=== PATIENT | male | born 1995 | race Caucasian/White ===

== ENCOUNTER 2019-08-12 22:15 | Emergency (ER) | payer SELFPAY ==
[~2019-08-12] VITALS: Ht 180.3 cm; Wt 84.4 kg
--- NOTE | 2019-08-12 22:53 | NUR ---
REPORT TO KAY SAXENA
--- NOTE | 2019-08-12 23:04 | Diagnostic Imaging Report ---
Hand Complete CPT code: 82577 Indication:Fall Technique: Three views of the left hand obtained Comparison: None. Findings: The area of pain was not indicated or marked. Distal radius and ulna appear intact. Carpal bones appear generally well aligned. Fracture of the neck of the fifth metacarpal with mild volar angulation of the distal fracture fragment. No intra-articular extension. There is diffuse surrounding soft tissue swelling. The remainder of the digits are intact. IMPRESSION: Fifth metacarpal fracture as described above. Signed by: Dr. Rupert Sifuentes MD on 08/12/2019 11:01 PM
--- NOTE | 2019-08-12 23:32 | Emergency Department Note ---
History of Present Illnes History of Present Illness Chief Complaint: Extremity Trauma/Pain History of Present Illness This is a 24 year old male, with no significant PMH, who presents for evaluation of left hand pain. Pt states that he was getting out of a van, @ 1 hour [employer]ING [employer], when his foot slipped on the running board, and he fell onto the left hand, that initially hit the running board, and then the concrete. Pt has pain on movement of left 5th finger. Pain is worse with extension. He denies numbness or tingling of the left hand. He is right handed. He denies previous injury to the left hand/wrist. Historian: Patient Arrival Mode: Car Business [employer] Assistant Required: No Onset (how long ago): hour(s) (1) Location: see HPI Quality: see HPI Radiation: non-radiation Severity: moderate Onset quality: sudden Duration (how long): hour(s) (1) Timing of current episode: constant Progression: unchanged Chronicity: new Relieving factors: none Exacerbating factors: movement Treatments prior to arrival: other (Tylenol) Risk factors: None Past Medical/Family History Physician Review I have reviewed the patient's past medical and family history. Any updates have been documented here. Past Medical History Recent Fever: No Clinical Suspicion of Infectio: No New/Unexplained Change in Ment: No Past Medical History: None Past Surgical History: None Social History Smoking Cessation: Never Smoker Counseling Performed: No Alcohol Use: None Any Illegal Drug Use: No TB Exposure/Symptoms: No Physically hurt or threatened: No Family History Family history of heart diseas: No Other Last Tetanus: UTD Any Pre-Existing Lines (PICC,: No Is patient up to date on immun: Yes Last Flu: YES Last Pneumovax: NO Review of Systems Review of Systems Constitutional: no symptoms EENTM: no symptoms Cardiovascular: no symptoms Respiratory: no symptoms Gastrointestinal: no symptoms Musculoskeletal: as per HPI, joint pain (swelling and tenderness of distal left metacarpal), joint swelling Neurological: no symptoms Review of other systems All other systems reviewed and negative. Physical Exam Related Data Allergies: Coded Allergies: No Known Allergies (Unverified , 08/12/19) Triage Vital Signs Vital Signs Date Time Temp Pulse Resp B/P (MAP) Pulse Ox O2 Delivery O2 Flow Rate FiO2 08/12/19 22:20 97.2 65 17 145/92 100 Vital signs reviewed: Yes Physical Exam CONSTITUTIONAL Constitutional: well-developed, well-nourished HENT HENT: normocephalic, atraumatic, oropharynx clear/moist, nose normal HENT L/R: left TM normal, right TM normal, left canal normal, right canal normal, left ext ear normal, right ext ear normal, left impacted cerumen, right impacted cerumen, left bulging TM, right bulging TM EYES Eyes: PERRL, conjunctivae normal NECK Neck: ROM normal PULMONARY Pulmonary: effort normal, breath sounds normal CARDIOVASCULAR Cardiovascular: regular rhythm, heart sounds normal, capillary refill normal, normal rate GASTROINTESTINAL GENITOURINARY SKIN Skin: warm, dry MUSCULOSKELETAL Musculoskeletal: tenderness (tenderness and swelling of left 5th metacarpal, no crepitus, pain with extension and abducting this finger;), swelling NEUROLOGICAL Neurological: alert, oriented x 3, no gross motor or sensory deficits PSYCHOLOGICAL Psychological: mood/affect normal, judgement normal Results Imaging Imaging results reviewed: Yes Imaging Comments [place] [id number] Patient Name: ALISTAIR MOYA MR #: [id number] : 1995 Age/Sex: 24/M Req #: [id number] Adm Physician: Ordered by: KATERYNA ELLIOTT MD Report #: [id number] Location: [facility] Room/Bed: Procedure: [id number] HOPD/HAND 3 VIEW LT - HOPD Exam Date: 08/12/19 Exam Time: 2243 REPORT STATUS: Signed Hand Complete CPT code: 27387 Indication:Fall Technique: Three views of the left hand obtained Comparison: None. Findings: The area of pain was not indicated or marked. Distal radius and ulna appear intact. Carpal bones appear generally well aligned. Fracture of the neck of the fifth metacarpal with mild volar angulation of the distal fracture fragment. No intra-articular extension. There is diffuse surrounding soft tissue swelling. The remainder of the digits are intact. IMPRESSION: Fifth metacarpal fracture as described above. Signed by: Dr. Alex Sifuentes MD on 08/12/2019 11:01 PM Dictated By: ALEX SIFUENTES MD 00 Transcribed By: JACEY on 08/12/192300 COPY TO: KATERYNA ELLIOTT MD~ Critical Care Time Subsequent provider I assumed direction of critical care for this patient from another provider of my specialty. Assessment & Plan Assessment & Plan Final Impression: (1) UNSP FRACTURE OF FIFTH METACARPAL BONE, LEFT HAND, INIT (2) PAIN IN LEFT HAND (3) OTH SLIPPING, TRIPPING AND STUMBLING W/O FALLING, INIT Assessment & Plan - Discussed results of xray with patient - Boxer's splint placed by Anatoliy Paulson RN, and placement verified, with neurovascular intact. Sling also placed. - Pt provided with Orthopedic f/u with Dr. Colbert, or an Orthopedist of his choice. - Pt declined Rx for pain meds. He will take Ibuprofen 200 mg - 3 tabs together every 6 hours, as needed, for pain. - ZURI. Depart Disposition: HOME, SELF-CARE Last Vital Signs Date Time Temp Pulse Resp B/P (MAP) Pulse Ox O2 Delivery O2 Flow Rate FiO2 08/12/19 22:20 97.2 65 17 145/92 100 KATERYNA ELLIOTT MD Aug 12, 2019 23:32
== END 2019-08-12 23:55 | disposition home or self-care (01) ==
LOC: FSED 22:15
DX: M79.642 Pain in left hand (principal); S62.337A Displaced fracture of neck of fifth metacarpal bone, left hand, initial encounter for closed fracture; W01.0XXA Fall on same level from slipping, tripping and stumbling without subsequent striking against object, initial encounter